=== PATIENT | male | born 1940 | race Caucasian/White ===

== ENCOUNTER → 2016-08-26 | Outpatient (CLI) | payer MEDICARE, BC ==
--- NOTE | 2016-08-26 16:07 | PN ---
DATE OF SERVICE: 08/26/2016 This patient is a 76-year-old gentleman who has been followed in the sleep center for treatment of obstructive sleep apnea/hypopnea syndrome. Recently patient had BiPAP titration done. During BiPAP titration, at the pressure of 19/15 his respiration was under control; with this pressure, apnea-hypopnea index was reduced to 1.7. Patient received his new BiPAP unit. He brought his unit in here today. I checked his unit. Usage is 22 out of 30 nights for more than 4 hours. Average usage is 5.3 hours. Sometimes the patient opens his mouth, according to his , and has significant noise when he is using his machine. He is using a [employer]Med nasal pillow mask of the old style. Story Sleepiness Scale has increased to 17. MEDICATIONS: 1. Zoloft. 2. Aricept. 3. Risperdal. 4. Hydrochlorothiazide. 5. Namenda. PHYSICAL EXAMINATION: Patient is in no distress. VITAL SIGNS: BP 133/83, HR 68, RR 16. Weight 229.8. Temperature 97.9. Oxygen saturation at room air 94%. HEENT: PERRLA, EOMI. Evaluation of oropharynx showed tongue protrudes midline. Moderately low position of soft palate. NECK: Supple. No JVD. Thyroid is not palpable. LUNGS: Clear to percussion and to auscultation. Good air exchange. No wheezing or rhonchi. HEART: S1, S2 regular. No murmurs, gallops or rubs. ABDOMEN: Obese. EXTREMITIES: No clubbing or cyanosis. WOOL DYER: Awake, alert, and oriented x3. Cranial nerves 2 to 7 intact. There is no fasciculation or atrophy noted. No focal deficits observed. IMPRESSION: 1. Obstructive and central sleep apnea-hypopnea syndrome. Patient demonstrated good compliance with treatment, benefitting from treatment, but he still has some breathing problems while using his machine; AHI of 18.9, which is possibly secondary to problems with the mask and opening his mouth. 2. Hypertension. 3. Periodic limb movement syndrome. 4. History of WPW. 5. History of stroke. PLAN: 1. Continue treatment with BiPAP every night for the whole night. 2. We will consider changing his nasal pillow mask to a different style, possibly a full-face mask, and then I will see the patient for a follow-up visit to check his progress. 3. Watching weight. 4. No driving if feeling any sleepiness. Thank you very much for allowing me to participate in the management of your patient. Sincerely, Antoni Stephens MD, PhD, FAASM. Diplomat of [place] [employer], Sleep Medicine Board by [place] [employer], [place] [employer]
== END | disposition home or self-care (01) ==
LOC: SLEEP 13:22
PROVIDERS: ATTEND Internal Medicine
DX: G47.33 Obstructive sleep apnea (adult) (pediatric) (principal); I10 Essential (primary) hypertension; I45.6 Pre-excitation syndrome; Z86.73 Personal history of transient ischemic attack (TIA), and cerebral infarction without residual deficits; Z79.899 Other long term (current) drug therapy